=== PATIENT | male | born 1960 | race Caucasian/White ===

== ENCOUNTER 2021-10-16 12:33 | Outpatient (CLI) | payer SELFPAY ==
--- NOTE | 2021-10-16 12:45 | CT_ITS ---
WS: [id number] CT CHEST WITH INTRAVENOUS CONTRAST HISTORY: SOLITARY LUNG NODULE TECHNIQUE: Contiguous 5 mm axial imaging performed on the thorax. Coronal and sagittal reformats are submitted. All CT scans at [facility] use at least one of these dose optimization techniques: automated exposure control; mA and/or kV adjustment per patient size (includes targeted exams where dose is matched to clinical indication); or iterative reconstruction. CONTRAST: Omnipaque 300; 50 mL IV. DLP: 749.21 mGy.cm COMPARISON: None available. Lungs and central airway: Mildly hyperinflated lungs. Noncalcified slightly spiculated 9 mm nodule LE FT upper lobe. There is additional area of very minimal groundglass attenuation in the superior RIGHT upper lobe. No additional nodule or pneumonia. Pleura: Normal. No pleural effusion. Heart and pericardium: Normal size heart with no pericardial effusion. Moderate calcification in the [place] coronary arteries. Mediastinum and cristofer: Bilateral hilar lymphadenopathy. The largest lymph node is 12 mm in the RIGHT s uprahilar region. There are additional smaller but more benign-appearing hilar and mediastinal lymph nodes nodes. There is mild increase in lymph node tissue extending along the RIGHT lower lobe pulmona ry artery. Vessels: Mild atherosclerosis aorta. Normal size pulmonary artery. Chest wall and lower neck: No soft tissue masses. Upper abdomen: Hepatic steatosis. Very mild hyperplasia LEFT adrenal gland. No discrete mass. Stomach is markedly distended with food products. Osseous structures: No destructive process. CT/CT chest w con* [id number] IMPRESSION: 1. Mildly spiculated noncalcified LEFT upper lobe nodule measures 9 mm. Pulmon rosa neoplasm is not excluded. Recommend follow-up PET/CT imaging or 3 month fol low-up chest CT. 2. Indeterminate bilateral hilar lymph nodes. The largest lymph node at 12 mm on the RIGHT. 3. No pneumonia. 4. Hepatic steatosis. 5. Mild hyperplasia LEFT adrenal gland.
[2021-10-16] MEDS: iohexol 300 mg/mL 100 mL Btl IV (12:52)
== END 2021-10-16 12:34 | disposition home or self-care (01) ==
LOC: RAD 12:36
PROVIDERS: PCP Nurse Practitioner Family; Visit Provider Nurse Practitioner Family
DX: R91.1 Solitary pulmonary nodule (principal); K76.0 Fatty (change of) liver, not elsewhere classified; E27.8 Other specified disorders of adrenal gland
CPT/HCPCS: 71260